=== PATIENT | female | born 1975 | race Caucasian/White ===

== ENCOUNTER 2020-05-15 08:10 | Outpatient (CLI) | payer BC, SELFPAY ==
--- NOTE | ~2020-05-15 | XR_ITS ---
EXAMINATION: XR UGIAC w small bowel DATE: 05/15/2020 09:13 INDICATION: Left upper quadrant abdominal pain. TECHNIQUE: The patient drank thick barium, gas-producing crystals, and thin barium. Fluoroscopy of th e esophagus, stomach, and small bowel was performed. Fluoroscopy exposure time was 0.7 minutes. Radio graphs of the abdomen were obtained. The total number of images was 429. COMPARISON: CT abdomen and pelvis 03/10/2010 FINDINGS: UPPER GASTROINTESTINAL SERIES: There is no mass or stricture of the esophagus. Esophageal motility is normal. There is no hiatal her amina. There was no gastroesophageal reflux with provocative maneuvers. The stomach shows a normal fold ing pattern. SMALL BOWEL SERIES: The small bowel shows a normal folding pattern. Specifically, the terminal ileum is normal. Transit t johnathan to the colon was 30 minutes. IMPRESSION: 1. Normal upper gastrointestinal series. 2. Normal small bowel series. Reviewed, dictated and finalized at location A. E LINING MAKER
== END 2020-05-15 08:11 | disposition home or self-care (01) ==
PROVIDERS: PCP Physician Assistant; Visit Provider Physician Assistant
DX: R10.10 Upper abdominal pain, unspecified (principal)
CPT/HCPCS: 74246; 74248

== ENCOUNTER → 2020-05-22 14:13 | Outpatient (CLI) | payer BC, SELFPAY ==
--- NOTE | ~2020-05-22 | CT_ITS ---
EXAMINATION: CT abdomen pelvis w con INDICATION: Left upper quadrant pain TECHNIQUE: Computed tomographic images of the abdomen and pelvis were obtained after the administrati on of 100 cc of Omnipaque 350 intravenous contrast. The dose-length product (DLP) was 494.63 mGy-cm. Automated exposure control and iterative reconstruction technique were employed. COMPARISON: 03/01/1910 FINDINGS: The lung bases are clear. The heart size is normal. Cysts of the liver measure up to 1.5 cm in the left hepatic lobe. The spleen, pancreas, gallbladder, and adrenal glands are normal. The kidn eys are unremarkable. No pathologically enlarged abdominal or pelvic lymph nodes are identified. Ther e is no free intraperitoneal gas or evidence of bowel obstruction. A chronic low-attenuation lesion o f the uterine fundus is consistent with a fibroid. IMPRESSION: 1. No CT correlate for the patient's symptoms. Reviewed, dictated and finalized at location A. 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
== END ==
PROVIDERS: PCP Physician Assistant; Visit Provider Physician Assistant
DX: R10.84 Generalized abdominal pain (principal)
CPT/HCPCS: 74177; Q9967

== ENCOUNTER → 2020-12-28 00:55 | Outpatient (CLI) | payer BC, SELFPAY ==
[2020-12-28 18:08] LABS: SARS-CoV-2 RNA PCR Negative
== END ==
PROVIDERS: PCP Physician Assistant; Visit Provider Internal Medicine Gastroenterology
DX: Z01.812 Encounter for preprocedural laboratory examination (principal); Z20.822 Contact with and (suspected) exposure to COVID-19
CPT/HCPCS: C9803; U0003; U0005

== ENCOUNTER 2021-01-01 00:29 | Day surgery (SDC) | payer BC, SELFPAY ==
[2020-12-19 14:53] VITALS: BMI 22.4
--- NOTE | 2020-12-31 17:25 | PM.HPGS ---
History of Present Illness History of Present Illness Consent: Risks, benefits, and alternatives have been discussed and questions answered. Patient agrees to proceed with procedure. Chief complaint: abnormal fecal abnormalities Narrative: Carrie Lima is a 45 year old female for colonoscopy due to the finding of blood in her stools. Her bowel movements have been erratic for past year so. He admittedly she sees red blood in the stool and in the toilet bowl. She does not have abdominal pain or rectal pain Review of Systems Review of Systems: All systems reviewed & are unremarkable except as noted in HPI and below PMFSH Past Medical History Medical History Anemia Anxiety Depression Social History Social History Smoking status: Former smoker Tobacco type: cigarettes Alcohol intake: never Living arrangements: with family Spiritual care concerns: No Meds Home Medications and Allergies Home Medications Medication Instructions Recorded Confirmed Type cholecalciferol (vitamin D3) 25 mcg PO DAILY 12/19/20 01/01/21 History [Vitamin D3] lactobacillus combination no.8 30,000,000 cell PO DAILY 12/19/20 01/01/21 History [Adult Probiotic] omega-3 fatty acids [Fish Oil] 1,000 mg PO DAILY 12/19/20 01/01/21 History Allergies Allergy/AdvReac Type Severity Reaction Status Date / Time No Known Allergies Allergy Mild Verified 01/01/21 08:05 Exam Const: General: alert Orientation/consciousness: patient oriented x3 Resp: Auscultation: clear to auscultation bilaterally Cardio: Rhythm: regular rhythm GI: GI Palp: Yes Soft to palpation and No Tenderness to palpation present (GI) Neuro: General: patient oriented x3 Assessment and Plan Assessment and plan (1) Blood in stool: Code(s): K92.1 - Melena Status: Acute Assessment and Plan: Colonoscopy with possible biopsy or polypectomy or cautery or injection of substances.
[2021-01-01 08:06] VITALS: BP 110/72; PULSE 104; RESP 16; TEMP 36.3; O2SAT 100
[2021-01-01] MEDS: LACTATED RINGERS 1,000 ML 150 ML IV CONT (08:08)
--- NOTE | 2021-01-01 08:11 | P.PNAN_ITS ---
Anes - Initial Pre Proc Eval Procedure: Operation Date: 01/01/21 09:00 Proposed Procedures p Colonoscopy - Jori West MD Date/Time: 01/01/21 08:11 Surgeon: Jori West MD Pre Op Diagnosis: abnormal fecal abnormalities Patient Data Age: 45 Gender: F Height: 1.75 m Weight: 69.3 kg Last Vital Signs Temp 36.3 C L 01/01/21 08:06 Pulse 104 H 01/01/21 08:06 Resp 16 01/01/21 08:06 BP 110/72 01/01/21 08:06 Pulse Ox 100 01/01/21 08:06 Allergies Allergy/AdvReac Type Severity Reaction Status Date / Time No Known Allergies Allergy Mild Verified 01/01/21 08:05 Home Medications Medication Instructions Recorded Confirmed Type cholecalciferol (vitamin D3) 25 mcg PO DAILY 12/19/20 01/01/21 History [Vitamin D3] lactobacillus combination no.8 30,000,000 cell PO DAILY 12/19/20 01/01/21 History [Adult Probiotic] omega-3 fatty acids [Fish Oil] 1,000 mg PO DAILY 12/19/20 01/01/21 History Patient hx anesthesia problems: none Family hx anesthesia problems: none [facility] Past Medical History Medical History (Updated 01/01/21 @ 08:13 by Aris Kerr MD) Anemia Anxiety Depression Social History Social History Smoking status: Former smoker Tobacco type: cigarettes Alcohol intake: never Living arrangements: with family Spiritual care concerns: No Anes - Eval Final PreProcedure Day of Procedure 01/01/21 08:11 Patient weight: normal Heart: regular rate and rhythm Lungs: clear to auscultation and normal air movement Airway: Mallampati scale class II Neurological: alert and oriented Last oral intake: >/= 8 hours ASA classification: II Emergent: no Anesthetic plan: proceed Anesthesia type and monitoring: general GIVS Informed Consent: The patient's anesthetic plan and its attendant risks and benefits were discussed with the patient/family/POA. Questions were solicited and answers provided to the satisfaction of the patient/family/POA.
--- NOTE | 2021-01-01 09:02 | SUR.OPER ---
cecal time 0902
[2021-01-01 09:11] VITALS: BP 91/57; PULSE 81; RESP 16; O2SAT 99
[2021-01-01 09:21] VITALS: BP 100/66; PULSE 90; RESP 19; O2SAT 99
[2021-01-01 09:31] VITALS: BP 100/64; PULSE 92; RESP 12; O2SAT 100
[2021-01-01] MEDS: ONDANSETRON INJ 4 MG/2 ML VIAL IV PUSH (09:32)
[2021-01-01 10:03] VITALS: BP 99/50; PULSE 77; RESP 14; O2SAT 100
[2021-01-01 10:13] VITALS: BP 114/58; PULSE 85; RESP 16; O2SAT 100
== END 2021-01-01 10:14 | disposition home or self-care (01) ==
PROVIDERS: PCP Physician Assistant; Visit Provider Internal Medicine Gastroenterology
PROC: 0DJD8ZZ Inspection of Lower Intestinal Tract, Via Natural or Artificial Opening Endoscopic (ICD-10-PCS; CPT 45378; principal; 2021-01-01 09:00)
DX: K92.1 Melena (principal); K64.8 Other hemorrhoids; D64.9 Anemia, unspecified; F41.8 Other specified anxiety disorders; Z87.891 Personal history of nicotine dependence
CPT/HCPCS: 45378; J2405; J2704; J7120

== ENCOUNTER 2021-07-20 09:19 | Emergency (ER) | payer BC, SELFPAY ==
--- NOTE | ~2021-07-20 | XR_ITS ---
EXAMINATION: XR foot RT min 3V EXAM DATE: 07/20/2021 09:53 INDICATION: Pain/swelling to R great toe 2 weeks. TECHNIQUE: Right foot dorsoplantar, lateral and oblique projections obtained and reviewed. There is no prior study for comparison. FINDINGS: Surgical changes from right bunionectomy, possible hallux correction. There are no bony er osions identified. There are no acute fractures or dislocations identified. There is no subcutaneous gas. The soft tissue is unremarkable. There are no radiopaque foreign bodies. IMPRESSION: No acute right foot findings. Reviewed, dictated and finalized at location A.
--- NOTE | 2021-07-20 09:46 | ED.LOWEXIN ---
HPI - Extremity Injury (Lower) General Chief Complaint: Extremity Injury, Lower Stated Complaint: Right Toe Pain/Swelling Time Seen by Provider: 07/20/21 09:34 Source: patient History of Present Illness HPI Narrative: Patient presents with right great toe pain for approximately 2 weeks. 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 she was putting a lot of pressure on her right great toe had some initial soreness however pain has gotten progressively worse and she notices redness and swelling concerning for infection so she presented to the ER for further evaluation. She denies any fevers, nausea, vomiting Related Data Home Medications Medication Instructions Recorded Confirmed cholecalciferol (vitamin D3) 25 mcg PO DAILY 12/19/20 01/01/21 [Vitamin D3] lactobacillus combination no.8 30,000,000 cell PO DAILY 12/19/20 01/01/21 omega-3 fatty acids 1,000 mg PO DAILY 12/19/20 01/01/21 Allergies Allergy/AdvReac Type Severity Reaction Status Date / Time No Known Allergies Allergy Mild Verified 01/01/21 08:05 Review of Systems Review of Systems: CONSTITUTIONAL: Denies fever, chills, or sweats. EYES: Denies visual changes, redness, or discharge. ENT: Denies rhinorrhea, congestion, sore throat, or otalgia. CARDIOVASCULAR: Denies chest pain, palpitations, or edema. RESPIRATORY: Denies cough or dyspnea. GASTROINTESTINAL: Denies abdominal pain, nausea, vomiting, or diarrhea. GENITOURINARY: Denies dysuria or hematuria. SKIN: Denies rash or itching. MUSCULOSKELETAL: Denies back pain, joint pain, or myalgia. NEUROLOGIC: Denies headache, numbness, dizziness, or weakness. PSYCHIATRIC: Denies anxiety or depression. All systems reviewed & are unremarkable except as noted in HPI and below PMFSH Past Medical History Medical History Anemia Anxiety Depression Social History Social History Smoking status: Former smoker Tobacco type: cigarettes Alcohol intake: never Spiritual care concerns: No Exam Narrative: GENERAL: Well-appearing, well-nourished, and in no acute distress. HEAD: Normocephalic, atraumatic. EYES: PERRLA and EOMI. ENT: Nares clear, no rhinorrhea or epistaxis. Mucous membranes moist. NECK: Supple. No masses. No JVD EXTREMITIES: Normal range of motion. Mild warmth erythema and edema to the medial aspect of the right great toe no skin tenderness with palpation of the IP joint or the MTP joint SKIN: Warm, dry, no rash. NEURO: No focal deficits. Alert and oriented x3. PSYCH: Normal mood and affect. Course Reevaluation(s) Reevaluation #1: Patient resting comfortably results and plan reviewed with patient. Patient is comfortable outpatient plan. Date: 07/20/21 Time: 10:34 Vital Signs Vital signs: Vital Signs Temperature 36.1 C L 07/20/21 09:47 Pulse Rate 87 07/20/21 09:47 Respiratory Rate 18 07/20/21 09:47 Blood Pressure 135/86 07/20/21 09:47 Pulse Oximetry 99 07/20/21 09:47 Temperature 36.1 C L 07/20/21 09:47 Pulse Rate 87 07/20/21 09:47 Respiratory Rate 18 07/20/21 09:47 Blood Pressure 135/86 07/20/21 09:47 Pulse Oximetry 99 07/20/21 09:47 MDM - Extremity Injury (Lower) MDM Narrative Medical decision making narrative: H&P as above, vss, pt looks clinically well, exam erythema warmth and edema to the medial aspect of the right great toe, imaging without acute process, additional labs/img considered, symptomatic relief available as needed, on reevaluation pt continues to looks clinically well. Suspect cellulitis, dns fracture, dislocation, major neurovascular compromise, abscess, gout. plan to tx/monitor as op w/ pcm f/u findings/plan discussed with pt, pt agree/comfortable with plan, return precautions given Imaging Data Radiologist's impression: Impressions Foot X-Ray 07/20/21 09:55 IMPRESSION: No acute rig
[2021-07-20 09:47] VITALS: BP 135/86; PULSE 87; RESP 18; TEMP 36.1; O2SAT 99
== END 2021-07-20 11:19 | disposition home or self-care (01) ==
PROVIDERS: Emergency Provider Emergency Medicine; PCP Physician Assistant
DX: L03.115 Cellulitis of right lower limb (principal); Z86.2 Personal history of diseases of the blood and blood-forming organs and certain disorders involving the immune mechanism; Z87.891 Personal history of nicotine dependence
CPT/HCPCS: 73630; 99283

== ENCOUNTER 2021-08-04 16:16 | Outpatient (CLI) | payer BC, SELFPAY ==
[2021-08-04 16:40] LABS: Basophils Percent Auto 0.3 % (0.2-1.2); Eosinophils Percent Auto 0.5 % (0-4.4); Hematocrit 38.2 % (37.0-47.0); Hemoglobin 13.4 g/dL (12.0-15.0); Immature Granulocyte Absolute 0.01 K/mm3 (0.00-0.031); Immature Granulocyte Percent A 0.1 % (0-0.5); Lymphocytes Absolute Auto 2.17 K/mm3 (0.9-3.2); Mean Corpuscular HGB Conc 35.1 g/dl (32-36); Mean Corpuscular Hemoglobin 33.4 pg (26-34); Mean Corpuscular Volume 95.3 fl (80-100); Mean Platelet Volume 8.4 fl (7.4-10.4); Monocytes Absolute Auto 0.6 K/mm3 (0.1-0.6); Monocytes Percent Auto 7.4 % (2.6-8.5); Neutrophils Absolute Auto 4.7 K/mm3 (1.3-6.7); Neutrophils Percent Auto 62.7 % (45.5-73.1); Platelet Count Result 263 k/mm3 (150-375); Red Blood Count 4.01 M/mm3 (4.2-5.4); Red Cell Distribution Width 11.7 % (11.5-14.5); White Blood Count 7.5 K/mm3 (4.5-10.0)
[2021-08-04 16:52] LABS: CRP < 0.5 mg/dL (<1.0); Uric Acid 4.1 mg/dL (2.5-7.5)
[2021-08-04 16:54] LABS: Rheumatoid Factor < 8.6 IU/ML (<12)
[2021-08-04 17:09] LABS: Erythrocyte Sedimentation Rate 13 mm/hr (0-20)
[2021-08-07 21:43] LABS: HLA B27 Negative (Negative)
== END 2021-08-04 16:17 | disposition home or self-care (01) ==
LOC: ANHLAB 16:18
PROVIDERS: PCP Physician Assistant; Visit Provider Podiatrist Foot & Ankle Surgery
DX: M19.071 Primary osteoarthritis, right ankle and foot (principal)
CPT/HCPCS: 36415; 84550; 85025; 85652; 86038; 86140; 86430; 86812

== ENCOUNTER → 2022-08-06 12:26 | Outpatient (CLI) | payer BC, SELFPAY ==
--- NOTE | ~2022-08-06 | XR_ITS ---
Lumbosacral Spine: AP and lateral views Clinical History: Pain Findings: The normal lordotic curve is maintained. The vertebral bodies and posterior elements are i ntact. The intervertebral disc spaces are preserved. There is facet arthropathy from L4 through S1. The sacroiliac joints are normally outlined. Impression: Facet arthropathy at the lower lumbar spine, as detailed above. Reviewed, dictated and finalized at location . Impression: Facet arthropathy at the lower lumbar spine, as detailed above.
== END ==
PROVIDERS: PCP Physician Assistant; Visit Provider Physician Assistant
DX: M47.896 Other spondylosis, lumbar region (principal)
CPT/HCPCS: 72100

== ENCOUNTER 2022-11-23 09:42 | Emergency (ER) | payer BC, SELFPAY ==
[2022-11-23] VITALS (7 sets, daily range): BP systolic 98–124; BP diastolic 61–79; PULSE 71–112; RESP 12–18; TEMP 36.6; O2SAT 100
--- NOTE | ~2022-11-23 | CT_ITS ---
EXAMINATION: CT brain wo con DATE: 11/23/2022 13:39 INDICATION: Headache. TECHNIQUE: Computed tomography (CT) of the head was performed without intravenous contrast. The mA wa s adjusted according to patient size. Iterative reconstruction technique was employed. The dose-lengt h product was 681.00 mGy-cm. COMPARISON: None FINDINGS: There is no intracranial hemorrhage, acute infarction, or abnormal intracranial mass lesion . The ventricles are normal in size. There is a prominent perivascular space in the right basal gangl ia. The orbits are normal. There is mild mucosal thickening in the ethmoid sinuses. The mastoid air c ells are normal. IMPRESSION: 1. Normal brain. Reviewed, dictated and finalized at location A. IMPRESSION: 1. Normal brain.
--- NOTE | ~2022-11-23 | XR_ITS ---
EXAMINATION: XR chest 1V portable INDICATION: Shortness of breath TECHNIQUE: Portable AP chest at 1021 hours COMPARISON: 12/12/2014 FINDINGS: The lungs are free of acute opacities. No pleural effusion or pneumothorax. The cardiomedia stinal silhouette is normal. IMPRESSION: 1. No acute cardiopulmonary abnormality. Reviewed, dictated and finalized at location B.
--- NOTE | 2022-11-23 09:58 | ECG_ITS ---
Measurements Intervals [place] Rate: 111 P: 89 MO: 154 QRS: 79 QRSD: 78 T: 69 QT: 328 QTc: 446 Interpretive Statements SINUS TACHYCARDIA MINOR RV CONDUCTION ABNORMALITY OTHERWISE NORMAL ECG NO PREVIOUS ECG AVAILABLE FOR COMPARISON Electronically Signed On 11-23-2022 16:56:21 CDT by Ihsan Reis M.D.
[2022-11-23 10:31] LABS: Basophils Percent Auto 0.4 % (0.2-1.2); Eosinophils Percent Auto 0.7 % (0-4.4); Hematocrit 42.8 % (37.0-47.0); Hemoglobin 14.7 g/dL (12.0-15.0); Immature Granulocyte Absolute 0.01 K/mm3 (0.00-0.031); Immature Granulocyte Percent A 0.2 % (0-0.5); Lymphocytes Absolute Auto 1.44 K/mm3 (0.9-3.2); Lymphocytes Percent Auto 25.2 % (18.3-44.2); Mean Corpuscular HGB Conc 34.3 g/dl (32-36); Mean Corpuscular Hemoglobin 33.2 pg (26-34); Mean Corpuscular Volume 96.6 fl (80-100); Mean Platelet Volume 8.2 fl (7.4-10.4); Monocytes Absolute Auto 0.4 K/mm3 (0.1-0.6); Monocytes Percent Auto 7.5 % (2.6-8.5); Neutrophils Absolute Auto 3.8 K/mm3 (1.3-6.7); Platelet Count Result 268 k/mm3 (150-375); Red Blood Count 4.43 M/mm3 (4.2-5.4); Red Cell Distribution Width 11.9 % (11.5-14.5); White Blood Count 5.7 K/mm3 (4.5-10.0)
[2022-11-23 10:40] LABS: Prothrombin Time 13.5 Seconds (11.1-14.7)
[2022-11-23 10:41] LABS: Partial Thromboplastin Time 32.1 SECONDS (22.3-36.8)
[2022-11-23 10:43] LABS: Alanine Aminotransferase 21 U/L (6-35); Albumin Level 4.6 g/dL (3.5-5.1); Alkaline Phosphatase 64 U/L (38-126); Anion Gap 10 mmol/L (8-16); Aspartate Amino Transferase 27 U/L (14-36); Bilirubin,Total 0.9 mg/dL (0.2-1.3); Blood Urea Nitrogen 13 mg/dL (7-17); Calcium 9.2 mg/dL (8.4-10.2); Carbon Dioxide 22 mmol/L (22-30); Chloride 102 mmol/L (98-107); Estimated CRCL calculation 81 ml/min; Estimated Glomerular Filt Rate > 60; Glucose 102 mg/dL (65-110); Lipase 54 U/L (23-300); Potassium 3.3 mmol/L (3.4-5.0); Sodium 134 mmol/L (137-145)
[2022-11-23] MEDS: SODIUM CHLORIDE 0.9% IV 1,000 ML 999 ML IV CONT (10:43)
[2022-11-23] MEDS: KETOROLAC 30 MG/ML VIAL (*BKC) IV PUSH (10:44)
[2022-11-23] MEDS: MECLIZINE HCL 25 MG TABLET PO (10:46)
[2022-11-23] MEDS: diazePAM INJ (*CRX) 10 MG/2 ML SYRINGE 5 MG IV PUSH (10:47)
[2022-11-23 10:54] LABS: Troponin I < 0.012 ng/mL (0.000-0.034)
[2022-11-23 13:43] LABS: Troponin I < 0.012 ng/mL (0.000-0.034)
--- NOTE | 2022-11-23 15:26 | ED.ARRPALP ---
HPI - Arrhythmia/Palpitations General Chief Complaint: Arrhythmia/Palpitations Stated Complaint: heart palpitations, dizziness Time Seen by Provider: 11/23/22 10:08 History of Present Illness HPI narrative: Patient is a 47-year-old female who presents ER with multiple complaints. First complaint is racing of the heart and palpitations. Ongoing for several weeks and has had a Holter monitor. Today she developed recurrence of her chronic migraines with right-sided frontal headache. She is also had a sniffing spinning dizziness that has been ongoing over the last couple weeks as well. Worse with moving her head and better when lying still. Patient is crying at this time and endorses anxiety. She does not go to the doctor receiving treatment for her chronic medical conditions. Related Data Home Medications Medication Instructions Recorded Confirmed cholecalciferol (vitamin D3) 25 25 mcg PO DAILY 12/19/20 01/01/21 mcg (1,000 unit) tablet (Vitamin D3) lactobacillus combination no.8 3 30,000,000 cell PO DAILY 12/19/20 01/01/21 billion cell capsule omega-3 fatty acids 1,000 mg PO DAILY 12/19/20 01/01/21 Allergies Allergy/AdvReac Type Severity Reaction Status Date / Time No Known Allergies Allergy Mild Verified 11/23/22 09:58 Review of Systems Review of Systems: All systems reviewed & are unremarkable except as noted in HPI and below Constitutional: Constitutional: Denies chills, Denies fatigue and Denies fever(s) Eyes: Eyes: Denies change in vision and Reports photophobia ENT: Reports dizziness, Denies nasal congestion and Denies sore throat Cardiovascular: Cardiovascular: Reports chest pain, Reports rapid heart rate and Denies radiating jaw, neck or arm pain Respiratory: Respiratory: Denies cough and Denies dyspnea Gastrointestinal: Gastrointestinal: Denies abdominal pain, Reports nausea and Denies vomiting Neurologic: Denies syncope, Reports headache(s), Denies focal weakness and Denies numbness PMFSH Past Medical History Medical History Anemia Anxiety Depression Social History Social History Smoking status: Former smoker Tobacco type: cigarettes Alcohol intake: never Living arrangements: with family Spiritual care concerns: No Exam Narrative: GENERAL: Well-appearing, well-nourished, and in no acute distress. HEAD: Normocephalic, atraumatic. EYES: PERRL and EOMI. no nystagmus. ENT:Mucous membranes moist. TMs normal bilaterally. NECK: Supple. CHEST: Clear to auscultation. No respiratory distress. HEART: Regular rate and rhythm. Normal peripheral pulses. ABDOMEN: Soft, nontender, nondistended. EXTREMITIES: Normal range of motion. No edema. SKIN: Warm, dry, no rash. NEURO: Alert and oriented x3. PSYCH: Normal mood and affect. Course Vital Signs Vital signs: Vital Signs Temperature 97.8 F 11/23/22 09:51 Pulse Rate 112 H 11/23/22 09:51 Respiratory Rate 14 11/23/22 09:51 Blood Pressure 124/76 11/23/22 09:51 Pulse Oximetry 100 11/23/22 09:51 Oxygen Delivery Room Air 11/23/22 09:51 Temperature 97.8 F 11/23/22 09:51 Pulse Rate 71 11/23/22 15:38 Respiratory Rate 14 11/23/22 15:38 Blood Pressure 101/65 11/23/22 15:38 Pulse Oximetry 100 11/23/22 15:38 Oxygen Delivery Room Air 11/23/22 09:51 MDM - Arrhythmia/Palpitations Lab Data 11/23/22 10:23 11/23/22 10:23 Labs: Lab Results 11/23/22 11/23/22 11/23/22 Range/Units 10:22 10:23 13:01 WBC 5.7 (4.5-10.0) K/mm3 RBC 4.43 (4.2-5.4) M/mm3 Hgb 14.7 (12.0-15.0) g/dL Hct 42.8 (37.0-47.0) % MCV 96.6 (80-100) fl MCH 33.2 (26-34) pg MCHC 34.3 (32-36) g/dl RDW 11.9 (11.5-14.5) % Plt Count 268 (150-375) k/mm3 MPV 8.2 (7.4-10.4) fl Immature Gran % (Auto) 0.2 (0-0.5) % Neut % (Auto)
== END 2022-11-23 15:39 | disposition home or self-care (01) ==
PROVIDERS: Emergency Provider Emergency Medicine; PCP Physician Assistant
DX: G43.909 Migraine, unspecified, not intractable, without status migrainosus (principal); R42 Dizziness and giddiness; F41.9 Anxiety disorder, unspecified; Z86.2 Personal history of diseases of the blood and blood-forming organs and certain disorders involving the immune mechanism; Z87.891 Personal history of nicotine dependence; R94.31 Abnormal electrocardiogram [ECG] [EKG]; R00.0 Tachycardia, unspecified
CPT/HCPCS: 36415; 70450; 71045; 80053; 83690; 84484; 85025; 85610; 85730; 93005; 96361; 96374; 96375; 99284; A9270; J1885; J3360; J7030

== ENCOUNTER → 2023-01-07 09:08 | Outpatient (CLI) | payer BC, SELFPAY ==
--- NOTE | ~2023-01-07 | XR_ITS ---
EXAMINATION: XR chest 2V 01/07/2023 09:19 INDICATION: Cough PROCEDURE: 2 view chest COMPARISON: Comparison to multiple prior studies sequentially, with oldest reviewed study dated 01/11. FINDINGS: The lungs are clear. The cardiomediastinal silhouette is within normal limits. There are no pleural effusions. There is no pneumothorax suspected. IMPRESSION: 1: NO ACUTE CARDIOPULMONARY DISEASE. Reviewed, dictated and finalized at location L.
== END ==
PROVIDERS: PCP Physician Assistant; Visit Provider Physician Assistant
DX: R05.9 Cough, unspecified (principal)
CPT/HCPCS: 71046

== ENCOUNTER → 2023-04-01 15:32 | Outpatient (CLI) | payer BC, SELFPAY ==
--- NOTE | ~2023-04-01 | CT_ITS ---
CT Scan of the Chest without Contrast: Clinical Indication: Shortness of breath Technique: Contiguous sections were acquired throughout the chest without intravenous contrast. Dose reduction technique was used on this scan by utilizing automated exposure control and iterative recon struction technique. The dose-length product (DLP) was 169.34 mGy-cm. Findings: There is no evidence of any significant mediastinal, hilar or axillary lymphadenopathy. The mediastin al soft tissues appear normal. There is no evidence of pleural or pericardial effusion. The lungs are clear. No pulmonary nodules or infiltrates are noted. Images through the upper abdomen reveal no abnormalities. Impression: No significant abnormalities seen. Reviewed, dictated and finalized at location . MAKER Impression: No significant abnormalities seen.
== END ==
PROVIDERS: PCP Physician Assistant; Visit Provider Physician Assistant
DX: R06.02 Shortness of breath (principal); R05.9 Cough, unspecified
CPT/HCPCS: 71250

== ENCOUNTER 2023-04-07 08:13 | Outpatient (CLI) | payer BC, SELFPAY ==
--- NOTE | 2023-04-07 12:09 | WPDSIXMINUTE ---
Six Minute Walk Procedure Procedure Performed Pulmonary Stress Test (6 min walk) Six Minute Walk Six Minute Walk: This is a 6 minute walk test. The test was performed and interpreted in accordance with the 2014 ERS/ATS task force guidelines. Findings: The patient's resting room air oxygen saturation measured by pulse oximetry was 99% and heart rate was 112 bpm. Patient ambulated for 305 meters and oxygen saturation remained 96 to 99%. Heart rate at the end of the study was 113 bpm. The patient did not qualify for supplemental oxygen at rest or with ambulation. There are no prior studies for comparison.
--- NOTE | 2023-04-07 12:10 | P.PCNPFT_ITS ---
PFT Procedure Performed PFT Procedure Performed Plethysmography (Lung Vol) Diffusing Cap (DLCO) Flow Vol Loop Spirometry w/o Bronchodil PFT Interpretation This is a pulmonary function test with spirometry, plethysmography and diffusing capacity. The test was performed and results interpreted in accordance with the 2019 and 2005 ATS/ERS Task Force guidelines respectively using the Global Lung Function Initiative-2012 reference equations. Patient demonstrated good effort and cooperation. Reproducibility criteria were met. The quality of the spirometry maneuver was Grade A. Of note, the patient requested not to do bronchodilation portion of the testing. Findings: Spirometry: The contour the inspiratory and expiratory flow tracing are normal. The FVC is 4.17 L, 99% predicted. The FEV1 is 3.33 L, 99% predicted. The FEV1: FVC ratio is 80%. Plethysmography: The total lung capacity is 6.10 L, 105% predicted. The functional residual capacity is 3.55 L, 109% predicted. The residual volume is 1.93 L, 100% predicted. Diffusing capacity: The diffusing capacity unadjusted for hemoglobin and carboxyhemoglobin is 25.8, 102% predicted. The diffusing capacity adjusted for alveolar volume is 4.64, 104% predicted. Impression: The spirometry is normal without evidence of an obstructive ab normality. The lung volumes are normal. The diffusing capacity is normal. There are no prior studies for comparison
== END 2023-04-07 08:14 | disposition home or self-care (01) ==
LOC: ANHPFT 08:14
PROVIDERS: PCP Physician Assistant; Visit Provider Physician Assistant
DX: R06.02 Shortness of breath (principal); R05.9 Cough, unspecified
CPT/HCPCS: 94375; 94618; 94726; 94729

== ENCOUNTER 2024-01-31 02:02 | Day surgery (SDC) | payer BC, SELFPAY ==
[2024-01-20 14:24] VITALS: BMI 21.4
[2024-01-31 08:31] VITALS: BP 108/85; PULSE 106; RESP 18; TEMP 36.4; O2SAT 100; BMI 21.2
[2024-01-31] MEDS: LACTATED RINGERS 1,000 ML 150 ML IV CONT (08:39)
--- NOTE | 2024-01-31 08:42 | WPDANESEPPF ---
Anes - Initial Pre Proc Eval Procedure: Operation Date: 01/31/24 09:30 Proposed Procedures p Esophagogastroduodenoscopy - Steven Hsu MD Date/Time: 01/31/24 08:42 Surgeon: Steven Hsu MD Pre Op Diagnosis: Functional dyspepsia Patient Data Age: 48 Gender: F Height: 1.75 m Weight: 65.4 kg Last Vital Signs Temp 36.4 C 01/31/24 08:31 Pulse 106 H 01/31/24 08:31 Resp 18 01/31/24 08:31 BP 108/85 01/31/24 08:31 Pulse Ox 100 01/31/24 08:31 O2 Del Method Room Air 01/31/24 08:31 Allergies Allergy/AdvReac Type Severity Reaction Status Date / Time No Known Allergies Allergy Mild Verified 01/31/24 08:27 Home Medications Medication Instructions Recorded Confirmed Type calcium glucarate 500 mg capsule 1 tab-cap PO DAILY 01/20/24 01/31/24 History multivit with minerals-iron 18 1 tablet PO DAILY 01/20/24 01/31/24 History mg-folic ac 400 mcg-vit K 25 mcg tablet (Adults Multivitamin) Patient hx anesthesia problems: none Family hx anesthesia problems: none Results Review: All pre-operative results and documents have been reviewed as part of the pre-operative evaluation. [facility] Past Medical History Medical History Anemia Anxiety Depression Social History Social History Smoking packs per day: 1 Smoking cigarettes per day: 20.0 Years smoked: 4 Smoking pack-years: 4.00 Smoking status: Former smoker Tobacco type: cigarettes Alcohol intake: never Substance use: never Substance use type: does not use Living arrangements: with family Spiritual care concerns: No Anes - Eval Final PreProcedure Day of Procedure 01/31/24 08:42 Patient weight: normal Heart: regular rate and rhythm Lungs: clear to auscultation Airway: Mallampati scale class 1 Neurological: alert and oriented Last oral intake: >/= 8 hours ASA classification: I Emergent: no Anesthetic plan: proceed Anesthesia type and monitoring: general GIVS and standard monitoring Results Review: All pre-operative results and documents have been reviewed as part of the pre-operative evaluation. Informed Consent: The patient's anesthetic plan and its attendant risks and benefits were discussed with the patient/family/POA. Questions were solicited and answers provided to the satisfaction of the patient/family/POA.
--- NOTE | 2024-01-31 09:06 | PM.HPGS ---
History of Present Illness History of Present Illness Consent: Risks, benefits, and alternatives have been discussed and questions answered. Patient agrees to proceed with procedure. Chief complaint: Functional dyspepsia Narrative: Carrie Lima is a 48 year old female here for first EGD, 3 months of burning sensation chest/lips/face, sometimes pain after eating. Pepcid did not help Review of Systems Review of Systems: All systems reviewed & are unremarkable except as noted in HPI and below PMFSH Past Medical History Medical History (Updated 01/31/24 @ 09:07 by Steven Hsu MD) Anemia Anxiety Depression GERD (gastroesophageal reflux disease) Social History Social History Smoking packs per day: 1 Smoking cigarettes per day: 20.0 Years smoked: 4 Smoking pack-years: 4.00 Smoking status: Former smoker Tobacco type: cigarettes Alcohol intake: never Substance use: never Substance use type: does not use Living arrangements: with family Spiritual care concerns: No Meds Home Medications and Allergies Home Medications Medication Instructions Recorded Confirmed Type calcium glucarate 500 mg capsule 1 tab-cap PO DAILY 01/20/24 01/31/24 History multivit with minerals-iron 18 1 tablet PO DAILY 01/20/24 01/31/24 History mg-folic ac 400 mcg-vit K 25 mcg tablet (Adults Multivitamin) Allergies Allergy/AdvReac Type Severity Reaction Status Date / Time No Known Allergies Allergy Mild Verified 01/31/24 08:27 Vital Signs Vital Signs - 24 hr 01/31/24 08:31 Temperature 97.6 F Pulse Rate 106 H Respiratory Rate 18 Blood Pressure 108/85 Pulse Oximetry 100 Oxygen Delivery Room Air Exam Const: General: comfortable and no acute distress HENMT: Face/Nose/Sinus: Normal nares present Eyes: General: appearance normal, both eyes and all related structures Neck: Neck: no JVD Resp: Auscultation: clear to auscultation bilaterally Cardio: Rate: regular rate Rhythm: regular rhythm GI: Inspection: non-distended GI Palp: Yes Soft to palpation Skin: General skin exam: normal color Neuro: General: gait normal Speech: normal speech Extrem: General: normal to inspection Psych: Mental Status: mental status grossly normal Assessment and Plan Assessment and plan (1) GERD (gastroesophageal reflux disease): Code(s): K21.9 - Gastro-esophageal reflux disease without esophagitis Status: Acute Assessment and Plan: egd with bx
[2024-01-31 09:31] LABS: Beta HCG Quantitative < 2.39 mIU/ML
[2024-01-31] MEDS: BENZOCAINE (*SP) 60 ML SPRAY CAN (HURRICAINE) 1 SPRAY MUCOUS MEM (09:44)
[2024-01-31 09:56] VITALS: BP 91/65; PULSE 76; RESP 22; O2SAT 99
== END 2024-01-31 10:38 | disposition home or self-care (01) ==
PROVIDERS: Anesthesiology; PCP Physician Assistant; Visit Provider Internal Medicine Gastroenterology
PROC: 0DJ08ZZ Inspection of Upper Intestinal Tract, Via Natural or Artificial Opening Endoscopic (ICD-10-PCS; CPT 43235; principal; 2024-01-31 09:30)
DX: K29.50 Unspecified chronic gastritis without bleeding (principal); K21.9 Gastro-esophageal reflux disease without esophagitis; D64.9 Anemia, unspecified; F41.9 Anxiety disorder, unspecified; F32.A Depression, unspecified; Z87.891 Personal history of nicotine dependence
CPT/HCPCS: 43239; 36415; 84702; 88305; J2003; J2704; J7120

== ENCOUNTER 2024-06-15 15:32 | Outpatient (CLI) | payer OTHER, SELFPAY ==
--- NOTE | ~2024-06-15 | XR_ITS ---
CHEST RADIOGRAPH, PA AND LATERAL CLINICAL HISTORY: ABNORMAL FINDINGS ON DIAGNOSTIC IMAGING . COMPARISON: 01/07/2023 TECHNIQUE: PA and lateral views of the chest. FINDINGS The cardiomediastinal silhouette is unremarkable. Incidental notation is made of pectus excavatum, simulating a right middle lobe infiltrate on frontal view. The lungs are clear. IMPRESSION: No focal infiltrate or effusion. Reviewed, dictated and finalized at location A. [facility]
== END 2024-06-15 15:33 | disposition home or self-care (01) ==
LOC: GOSHIMG 15:34
PROVIDERS: PCP Physician Assistant; Visit Provider Physician Assistant
DX: R93.89 Abnormal findings on diagnostic imaging of other specified body structures (principal)
CPT/HCPCS: 71046